=== PATIENT | female | born 1955 | race Caucasian/White ===

== ENCOUNTER 2020-08-10 15:49 | Emergency (ER) | payer OTHER ==
[~2020-08-10] VITALS: Ht 160 cm; Wt 60.8 kg
[~2020-08-10 15:49] MED LIST: AMBIEN 5 MG TABL5 M1 PO; AZITHROMYCIN 2250 MG PO; CEFUROXIME250 MG PO; CELEXA20 MG PO; COZAAR 50 MG TA50 M2 PO; DYMISTA NASAL S23 GM NS; ESTRADIOL 1 MG T1 M1 PO; FISH OIL 1,001000 M2 PO; IMITREX 25 MG T25 M1 PO; MUCINEX TA600 MG/TA2 PO; MYFORTIC360 MG PO; PREDNISONE 10 M10 MG PO; PROGRAF 1 MG1 MG PO; PROGRAF5 MG PO; PROTONIX40 M1 PO; VENTOLIN HFA 1818 GM INH; VITAMIN D2000 UNIT PO; ZYRTEC10 M2 PO
[2020-08-10 16:50] LABS: ABSOLUTE NEUTROPHILS 13.9 thou/uL (1.4-8.2); BASOPHILS 0.1 % (0.0-2.0); HEMATOCRIT 42.1 % (37.0-47.0); HEMOGLOBIN 14.1 gm/dL (12.0-15.0); LYMPHOCYTES 3.1 % (24.0-44.0); MCH 32.3 pg (26.0-34.0); MCHC 33.4 g/dL (28.0-37.0); MCV 96.6 fL (80.0-100.0); MONOCYTES 1.1 % (1.0-8.0); PLATELET COUNT 269 thou/uL (150-400); POLYS 95.7 % (36.0-66.0); RBC 4.35 mil/uL (4.20-5.00); RDW 12.5 % (10.5-14.5); WBC 14.5 thou/uL (4.0-11.0)
[2020-08-10 16:54] LABS: CALCIUM 9.4 mg/dL (8.5-10.1); POTASSIUM 3.9 mmol/L (3.5-5.1)
[2020-08-10 17:02] LABS: ALBUMIN 4.2 g/dL (3.4-5.0); TOTAL BILIRUBIN 0.6 mg/dL (0.2-1.0); TOTAL PROTEIN 8.1 g/dL (6.4-8.2)
[2020-08-10 17:55] LABS: URINE BILIRUBIN NEGATIVE (Negative); URINE BLOOD 1+ (Negative); URINE CLARITY CLEAR; URINE COLOR YELLOW; URINE GLUCOSE-RANDOM* NEGATIVE (Negative); URINE KETONES NEGATIVE (Negative); URINE LEUKOCYTES-REFLEX NEGATIVE (Negative); URINE NITRITE-REFLEX NEGATIVE (Negative); URINE PROTEIN (DIPSTICK) 2+ (Negative); URINE SPECIFIC GRAVITY 1.025 (1.005-1.035); URINE UROBILINOGEN 0.2 E.U./dl (0.2-1.0)
[2020-08-10 18:01] LABS: SQUAMOUS 0-3 Few /LPF (0-3)
[2020-08-10 18:03] LABS: BACTERIA-REFLEX None Seen /HPF (None Seen); CASTS None Seen /LPF (None Seen); CRYSTALS None Seen /LPF (None Seen); URINE RBC 3-10 Few /HPF (NONE SEEN); URINE WBC-REFLEX 0-5 Rare /HPF (0-5)
[2020-08-10 18:34] VITALS: BP 151/77
== END 2020-08-10 18:35 | disposition home or self-care (01) ==
LOC: ER 15:49
PROVIDERS: Physician Assistant
DX: G43.909 Migraine, unspecified, not intractable, without status migrainosus (principal); Z88.2 Allergy status to sulfonamides; Z88.0 Allergy status to penicillin; Z88.8 Allergy status to other drugs, medicaments and biological substances; Z91.040 Latex allergy status; Z79.899 Other long term (current) drug therapy; Z90.89 Acquired absence of other organs; Z98.890 Other specified postprocedural states